=== PATIENT | female | born 1985 | race Caucasian/White ===

== ENCOUNTER 2021-05-06 21:32 | Emergency (ER) | payer OTHER ==
[~2021-05-06 21:32] MED LIST: NORFLEX 100 MG100 MG PO; PREDNISONE 50 M50 MG PO; TORADOL 10 MG T10 MG PO
[2021-05-06] MEDS ORDERED: NAPROSYN500 MG PO (22:58)
== END 2021-05-06 23:25 | disposition home or self-care (01) ==
LOC: ER1 21:32
DX: L98.9 Disorder of the skin and subcutaneous tissue, unspecified (principal); F17.200 Nicotine dependence, unspecified, uncomplicated
CPT/HCPCS: 99283

== ENCOUNTER 2022-05-27 14:57 | Emergency (ER) | payer OTHER ==
[~2022-05-27 14:57] MED LIST changes: +NAPROSYN500 MG PO
[2022-05-27 15:30] LABS: HEMOGLOBIN 15.9 gm/dl (12.3-15.3); RED BLOOD COUNT 4.91 M/UL (4.00-5.10); WHITE BLOOD COUNT 13.8 K/UL (4.5-11.0)
[2022-05-27 16:18] LABS: BUN/CREATININE RATIO 11 (0-10)
[2022-05-27] MEDS ORDERED: VISTARIL 50 MG50 MG PO (19:14)
== END 2022-05-27 19:25 | disposition home or self-care (01) ==
LOC: ER1 14:57
PROVIDERS: Physician Assistant Medical
DX: R07.9 Chest pain, unspecified (principal); F17.210 Nicotine dependence, cigarettes, uncomplicated
CPT/HCPCS: 70450; 71045; 80053; 80307; 81001; 82550; 82553; 84484; 85025; 93005; 99285